=== PATIENT | male | born 1945 | race Caucasian/White ===

== ENCOUNTER 2017-06-30 05:44 | Emergency (ER) | payer MEDICARE, OTHER ==
[~2017-06-30] VITALS: Ht 177.8 cm; Wt 120.0 kg
[~2017-06-30 05:44] MED LIST: ALTACE2.5 M1 PO; ALTACE5 MG OR; AMOX/K CLAV500 MG PO; CIPRO500 MG OR; CLONIDINE0.2 MG OR; CLONIDINE0.2 MG PO; MAXZIDE-2537.5 MG/TA PO; METO50TA52 OR; METOPROL TAR25 MG PO; NYSTATIN100000 M3 TOP; TRIAMCINOLONE A0.12 EX; VICODIN ES1 TAB OR
[2017-06-30 06:15] LABS: HEMOGLOBIN 17.3 g/dl (14.0-18.0); IMMATURE GRANULOCYTES 0.3 % (0.0-1.0); MEAN CELL VOLUME 91.8 fL CALC (80.0-100.0); MEAN CORPUSCULAR HGB 32.4 pG CALC (26.0-32.0); MEAN CORPUSCULAR HGB CONC 35.3 g/L CALC (32.0-36.0); NEUT# 6.55 thou/uL (1.82-7.42); RED BLOOD COUNT 5.34 mill/uL (4.70-6.10); RED CELL DISTRI WIDTH 13.9 % (11.5-15.5)
[2017-06-30 06:44] LABS: ALBUMIN 4.3 g/dL (3.2-5.0); ALKALINE PHOSPHATASE 77 u/l (38-126); AMYLASE 324 u/l (30-110); ANION GAP 16 (6-22 (CALC)); BILIRUBIN, TOTAL 1.1 mg/dL (0.0-1.4); BUN 21 mg/dL (8-23); BUN/CREATININE RATIO 22 (12-20 (CALC)); CALCIUM 9.6 mg/dL (8.4-10.2); CARBON DIOXIDE 25 mmol/l (22-30); CHLORIDE 102 mmol/l (95-108); GFR > 60 ML/MIN (>=60 (CALC)); GFR FOR AFR.AMER. > 60 ML/MIN (>=60 (CALC)); GLUCOSE 129 mg/dL (82-115); LIPASE 1717 u/l (23-300); SGOT/AST 33 u/l (19-48); SGPT/ALT 52 u/l (11-66); SODIUM 139 mmol/l (137-146); TOTAL PROTEIN 6.7 g/dL (6.3-8.2)
[2017-06-30 06:56] LABS: MYOGLOBIN 52 ng/mL (0 - 121)
[2017-06-30 10:55] VITALS: BP 108/51
== END 2017-06-30 10:55 | disposition short-term general hospital (02) ==
LOC: ED 05:44
PROVIDERS: Emergency Medicine
DX: K80.50 Calculus of bile duct without cholangitis or cholecystitis without obstruction (principal); K85.90 Acute pancreatitis without necrosis or infection, unspecified; R07.9 Chest pain, unspecified; I10 Essential (primary) hypertension; R10.11 Right upper quadrant pain